=== PATIENT | female | born 1985 | race Caucasian/White ===

== ENCOUNTER 2021-12-13 10:00 | Inpatient (IN) | payer OTHER ==
[2021-12-15] MEDS ORDERED: ELECTROLYTE-148 SOLN 1,000 ML IV SCH (08:00)
[2021-12-15] MEDS ORDERED: CITRIC ACID/SODIUM CITRATE 30 ML UNIT-DOSE CUP PO ONE (08:00)
[2021-12-15] MEDS ORDERED: ELECTROLYTE-148 SOLN 1,000 ML IV ONE (08:00)
[2021-12-15] MEDS ORDERED: ELECTROLYTE-148 SOLN 500 ML IV ONE (08:09)
[2021-12-15 08:34] VITALS: BMI 29.7
[2021-12-15] MEDS ORDERED: ONDANSETRON 4 MG/2 ML VIAL ONE (09:20)
[2021-12-15] MEDS ORDERED: ceFAZolin SODIUM 1 GM VIAL ONE (09:20)
[2021-12-15] MEDS ORDERED: PHENYLEPHRINE HCL 10 MG/1 ML SINGLE DOSE VIAL ONE (09:21)
[2021-12-15] MEDS ORDERED: morphine SULFATE/PF 1 MG/2 ML (2cc Syringe - QUVA) ONE (09:25)
[2021-12-15] MEDS ORDERED: CLINDAMYCIN PHOSPHATE 600 MG/4 ML VIAL ONE (09:32)
[2021-12-15] MEDS ORDERED: OXYTOCIN 10 UNITS/ML VIAL ONE (09:56)
[2021-12-15] MEDS ORDERED: METHYLERGONOVINE MALEATE 0.2 MG/1 ML AMP IM PRN (10:52)
[2021-12-15] MEDS ORDERED: OXYTOCIN 20 UNITS in 0.9% NS 20 UNIT/1,000 ML INFUS.BAG IV SCH (11:00)
[2021-12-15] MEDS ORDERED: IBUPROFEN 800 MG/8 ML IJ IVPB ONE (11:13)
[2021-12-15] MEDS ORDERED: OXYTOCIN 20 UNITS in 0.9% NS 20 UNIT/1,000 ML INFUS.BAG IV ONE (11:13)
[2021-12-15] MEDS: IBUPROFEN 800 MG/8 ML IJ IVPB SCH ×2 (11:45→21:28)
[2021-12-15] MEDS ORDERED: LACTATED RINGERS SOLUTION 1,000 ML IV SCH (11:45)
[2021-12-15] MEDS ORDERED: ACETAMINOPHEN INJECTION 100 ML IVPB ONE (12:24)
[2021-12-15] MEDS: ACETAMINOPHEN 1000 MG/100 ML BAG IVPB SCH ×2 (12:30→17:57)
[2021-12-15] MEDS: oxyCODONE HCL 5 MG TABLET PO PRN ×3 (13:40→23:07)
[2021-12-15] MEDS: SIMETHICONE 80 MG TAB.CHEW (FP) PO PRN ×2 (17:57→23:09)
[2021-12-15] MEDS ORDERED: ONDANSETRON 4 MG/2 ML VIAL IVPB STA (20:34)
[2021-12-16] MEDS: ACETAMINOPHEN 1000 MG/100 ML BAG IVPB SCH ×2 (00:39→06:34)
[2021-12-16] MEDS: oxyCODONE HCL 5 MG TABLET PO PRN ×4 (03:23→17:28)
[2021-12-16] MEDS: SIMETHICONE 80 MG TAB.CHEW (FP) PO PRN ×2 (03:23→07:23)
[2021-12-16] MEDS: IBUPROFEN 800 MG/8 ML IJ IVPB SCH ×3 (04:07→14:04)
[2021-12-16 08:11] LABS: BASO % 0.2 % (0-2.0); EOS % 0.8 % (0-4.5); HEMATOCRIT 36.7 % (32.4-45.2); LYMPH % 12.2 % (8-40); MCH 28.6 pg (25.7-33.7); MCHC 32.8 g/dl (32.0-36.0); MEAN CELL VOLUME 87.1 fl (80-96); MEAN PLT VOLUME 9.2 fl (7.5-11.1); MONO % 6.9 % (3.8-10.2); NEUT % 79.9 % (42.8-82.8); PLATELET COUNT 183 10^3/uL (134-434); RBC 4.21 M/mm3 (3.60-5.2); RDW 14.2 % (11.6-15.6); WHITE BLOOD COUNT 14.2 K/mm3 (4.0-10.0)
[2021-12-16] MEDS ORDERED: BISACODYL 10 MG SUPP.RECT RC PRN (10:52)
[2021-12-16] MEDS: PRENATAL VITAMINS W/ FOLIC ACID TABLET (FP) PO SCH (11:56)
[2021-12-16] MEDS ORDERED: ACETAMINOPHEN 500 MG TABLET (FP) PO PRN ×2 (15:06→18:00)
[2021-12-16] MEDS: IBUPROFEN 600 MG TABLET (FP) PO PRN (18:39)
[2021-12-16] MEDS ORDERED: DOCUSATE SODIUM 100 MG CAPSULE (FP) PO SCH (22:00)
[2021-12-16 23:02] VITALS: TEMP 98.1
[2021-12-17] MEDS: SIMETHICONE 80 MG TAB.CHEW (FP) PO PRN (00:05)
[2021-12-17] MEDS: oxyCODONE HCL 5 MG TABLET PO PRN ×2 (00:05→14:18)
[2021-12-17] MEDS: IBUPROFEN 600 MG TABLET (FP) PO PRN (08:17)
[2021-12-17] MEDS: PRENATAL VITAMINS W/ FOLIC ACID TABLET (FP) PO SCH (11:31)
[2021-12-17 13:39] VITALS: BP 110/67; PULSE 63
== END 2021-12-17 15:07 | disposition home or self-care (01) | DRG 788 ==
LOC: JLDR 12-15 07:05 → J3W 12-15 12:56
PROVIDERS: ADMIT Specialist; ATTEND Specialist
PROC: 10D00Z1 Extraction of Products of Conception, Low, Open Approach (ICD-10-PCS; principal; 2021-12-15)
DX: O34.211 Maternal care for low transverse scar from previous cesarean delivery (principal); O69.1XX0 Labor and delivery complicated by cord around neck, with compression, not applicable or unspecified; O36.5930 Maternal care for other known or suspected poor fetal growth, third trimester, not applicable or unspecified; O34.13 Maternal care for benign tumor of corpus uteri, third trimester; D25.2 Subserosal leiomyoma of uterus; R19.05 Periumbilic swelling, mass or lump; Z3A.39 39 weeks gestation of pregnancy; Z37.0 Single live birth
CPT/HCPCS: 36415; 85025; 88302-TC; 88307-TC